=== PATIENT | male | born 1950 | race Caucasian/White ===

== ENCOUNTER → 2019-10-30 09:35 | Outpatient (CLI) | payer MEDICARE, OTHER, SELFPAY ==
[2019-10-30 10:43] LABS: Cholesterol 235 mg/dL (200); High Density Lipoprotein 34 mg/dL; Triglycerides 374 mg/dL; Very Low Density Lipoprotein 75 mg/dL (5-40)
[2019-10-30 11:01] LABS: Homocysteine 8.2 umol/L (3.2-10.7)
== END ==
PROVIDERS: Family Provider Preventive Medicine Occupational Medicine; PCP Preventive Medicine Occupational Medicine; Referring Provider Psychiatry & Neurology Neurology; Visit Provider Psychiatry & Neurology Neurology
DX: I69.352 Hemiplegia and hemiparesis following cerebral infarction affecting left dominant side (principal); I10 Essential (primary) hypertension
CPT/HCPCS: 36415; 80061; 83090

== ENCOUNTER → 2019-11-11 12:33 | Outpatient (CLI) | payer MEDICARE, OTHER, SELFPAY ==
[2015-10-14 16:18] VITALS: BMI 31.3
--- NOTE | 2019-11-11 12:38 | CDU_ITS ---
Reason For Study: Hemiparesis Rt. Velocities/BP Lt. Velocities/BP Prox CCA 88.2/15.2 cm/sec. Prox CCA 73.9/14.4 cm/sec. Mid CCA 76.5/17.6 cm/sec. Mid CCA 75.8/16.3 cm/sec. Dist CCA 80.2/22.5 cm/sec. Dist CCA 65.4/15.4 cm/sec. Prox ICA 75.3/26.2 cm/sec. Prox ICA 67.3/21.1 cm/sec. Mid ICA 76.5/21.2 cm/sec. Mid ICA 76.1/20.1 cm/sec. Dist ICA 81.4/28.6 cm/sec. Dist ICA 76.2/23.4 cm/sec. Rt. ICA/CCA = 1.0. Lt. ICA/CCA = 1.0. Prox ECA 102.3/10.2 cm/sec. Prox ECA 66.4/7.8 cm/sec. Rt. Vert. 45.6/14.5 cm/sec. Lt. Vert. 45.6/9.9 cm/sec. Right Extracranial There is homogeneous, smooth atherosclerotic plaque noted in the right common carotid artery. There is heterogeneous, irregular atherosclerotic plaque noted in the right internal carotid artery. There is intimal thickening but no significant atherosclerotic plaque noted in the right external carotid artery. Antegrade flow is noted in the right vertebral artery. Left Extracranial There is homogeneous, smooth atherosclerotic plaque noted in the left common carotid artery. There is heterogeneous, irregular atherosclerotic plaque noted in the left internal carotid artery. There is intimal thickening but no significant atherosclerotic plaque noted in the left external carotid artery. Antegrade flow is noted in the left vertebral artery. Procedure Carotid Duplex [id number]. Exam performed in department. Interpretation Summary Mild (<50%) stenosis right extracranial internal carotid. Mild (<50%) stenosis left extracranial internal carotid. Flow within the vertebral arteries is antegrade bilaterally. Ordering Physician: Jonathan Neff Referring Physician: Keshav Cerrato Performed By: Sandy Ellis RVT
--- NOTE | 2019-11-11 12:39 | ECHOD_ITS ---
Reason For Study: Hemiparesis Procedure This was a 2D Doppler, Color Flow transthoracic echocardiogram. Exam performed in department. Left Ventricle Mild concentric left ventricular hypertrophy. Normal LV size. The estimated ejection fraction is 65 %. Stage 1 diastolic dysfunction. No regional wall motion abnormalities noted. Right Ventricle Normal size and thickness. Normal systolic function. Atria Normal left atrium. Normal right atrium. Normal atrial septum. Bubble contrast study negative for right to left interatrial shunt. Mitral Valve Mild diffuse mitral valve thickening. Mild mitral annular calcification extending into the posterior leaflet. Trivial mitral valve insufficiency. Tricuspid Valve Normal tricuspid valve. Trivial tricuspid valve insufficiency. Right ventricular systolic pressure estimated to be 31 mmHg. Aortic Valve Moderate focal aortic valve thickening. Mild aortic stenosis. Peak aortic valve gradient 19 mmHg. Mean aortic valve gradient 10 mmHg. Calculated aortic valve area (continuity equation) is 1.8 cm2. Pulmonic Valve Normal pulmonic valve. Great Vessels Normal aortic root. Normal arch. Normal inferior vena cava. Inferior vena cava collapse with sniff. Pericardium/Pleural No pericardial effusion. Medication Performed a rapid injection of agitated mix of 9 cc saline and 1cc air to assess for atrial septal defect. MMode/2D Measurements & Calculations LVIDd: 4.1 cm IVSd: 1.2 cm LVOT diam: 2.3 cm LVIDs: 2.6 cm LVPWd: 1.3 cm RVDd: 2.6 cm FS: 36.3 % LVOT area: 4.2 cm2 Ao root diam: 3.3 cm LAV(MOD-bp): 48.8 ml LVAd ap4: 30.0 cm2 LAV(MOD-bp) Indexed: 23.5 ml/m2 EDV(MOD-sp4): 91.4 ml LAV(MOD-sp2): 49.2 ml EDV(sp4-el): 91.4 ml LAV(MOD-sp4): 46.9 ml LVAs ap4: 15.0 cm2 ESV(MOD-sp4): 30.3 ml ESV(sp4-el): 28.9 ml EF(MOD-sp4): 66.9 % EF(sp4-el): 68.3 % SV(MOD-sp4): 61.1 ml SV(sp4-el): 62.5 ml LA A4 area: 19.6 cm2 LA dimension(2D): 3.4 cm RA A4 area: 12.7 cm2 Doppler Measurements & Calculations MV E max zeke: 67.2 cm/sec Lat Peak E' Zeke: 7.7 cm/sec Med Peak E' Zeke: 6.4 cm/sec MV A max zeke: 130.7 cm/sec E/E' lat: 8.7 E/E' med: 10.5 MV E/A: 0.51 Ao V2 max: 220.2 cm/sec LV V1 max: 95.1 cm/sec SV(LVOT): 89.8 ml Ao max P.4 mmHg LV V1 max P.6 mmHg Ao V2 mean: 151.4 cm/sec LV V1 mean P.1 mmHg Ao mean P.2 mmHg LV V1 mean: 69.3 cm/sec Ao V2 VTI: 45.7 cm LV V1 VTI: 21.2 cm NADINE(I,D): 2.0 cm2 NADINE(V,D): 1.8 cm2 PA V2 max: 93.4 cm/sec PI end-d zeke: 59.7 cm/sec TR max zeke: 255.7 cm/sec TR max P.1 mmHg Interpretation Summary Mild concentric left ventricular hypertrophy. The estimated ejection fraction is 65 %. Stage 1 diastolic dysfunction. Bubble contrast study negative for right to left interatrial shunt. Trivial mitral valve insufficiency. Trivial tricuspid valve insufficiency. Right ventricular systolic pressure estimated to be 31 mmHg. Moderate focal aortic valve thickening of right coronary cusp. Mild aortic stenosis. There is no comparison study available. Ordering Physician: Jonathan Neff Referring Physician: Kehsav Cerrato Performed By: Berna Flynn RDCS, RVT
== END ==
PROVIDERS: Family Provider Preventive Medicine Occupational Medicine; PCP Preventive Medicine Occupational Medicine; Referring Provider Psychiatry & Neurology Neurology; Visit Provider Psychiatry & Neurology Neurology
DX: Z86.73 Personal history of transient ischemic attack (TIA), and cerebral infarction without residual deficits (principal); I69.352 Hemiplegia and hemiparesis following cerebral infarction affecting left dominant side
CPT/HCPCS: 93306; 93880; A4216

== ENCOUNTER → 2020-01-27 09:34 | Outpatient (CLI) | payer MEDICARE, OTHER, SELFPAY ==
[2020-01-27 10:38] LABS: Cholesterol 192 mg/dL (200); High Density Lipoprotein 35 mg/dL; PSA,Total - Annual Screen 0.24 ng/mL (0.00-4.00); Triglycerides 233 mg/dL; Very Low Density Lipoprotein 47 mg/dL (5-40)
== END ==
PROVIDERS: PCP Preventive Medicine Occupational Medicine; Referring Provider Preventive Medicine Occupational Medicine; Visit Provider Preventive Medicine Occupational Medicine
DX: E78.2 Mixed hyperlipidemia (principal); Z12.5 Encounter for screening for malignant neoplasm of prostate
CPT/HCPCS: 36415; 80061; 84153; G0103

== ENCOUNTER → 2020-02-23 06:54 | Outpatient (CLI) | payer MEDICARE, OTHER, SELFPAY ==
--- NOTE | 2020-02-24 17:26 | PFTCOMP_ITS ---
COMPLETE PULMONARY FUNCTION TEST INTERPRETATION Brief HPI: Patient is a 69 year old male, currently under the care of Dr. Drew, who presents to [facility] for complete pulmonary function tests secondary to diagnosis of dyspnea. Respiratory therapist reports good effort and reproducible results. Interpretation: Forced expiration spirometry shows a mild large airways obstructive ventilatory defect with an FEV1 of 101% predicted. There is no significant bronchodilator response by strict ATS criteria. Spirograms are of good quality and plateau slowly, indicating slowly emptying areas of the lungs. The respiratory flow volume loop shows decreased expiratory flow rates at high lung volumes consistent with small airways obstruction. Lung volumes by body plethysmography show an elevated total lung capacity at 8.35 L, 135% predicted. All other lung volumes are increased symmetrically. Diffusion capacity by carbon monoxide is normal at 117% predicted. The airway resistance is elevated. No previous pulmonary function tests were available for review. Impression: Fully reversible mild large airways obstructive ventilatory defect resulting in air trapping with hyperinflation, and a pattern consistent with asthma.
== END ==
PROVIDERS: PCP Preventive Medicine Occupational Medicine; Referring Provider Preventive Medicine Occupational Medicine; Visit Provider Preventive Medicine Occupational Medicine
DX: R06.09 Other forms of dyspnea (principal); E78.2 Mixed hyperlipidemia; I10 Essential (primary) hypertension
CPT/HCPCS: 94060; 94726; 94729

== ENCOUNTER → 2020-03-03 11:27 | Outpatient (CLI) | payer MEDICARE, OTHER, SELFPAY ==
[2015-10-14 16:18] VITALS: BMI 31.3
[2020-03-03 12:15] LABS: Alanine Aminotransfer ALT/SGPT 54 U/L (16-61)
[2020-03-07 09:07] LABS: AST(SGOT) 31 U/L (15-37); Cholesterol 154 mg/dL (200); High Density Lipoprotein 32 mg/dL; Triglycerides 214 mg/dL; Very Low Density Lipoprotein 43 mg/dL (5-40)
== END ==
LOC: LAB.FUTURE 11:32 → LAB 03-08 06:48
PROVIDERS: PCP Preventive Medicine Occupational Medicine; Referring Provider Preventive Medicine Occupational Medicine; Visit Provider Preventive Medicine Occupational Medicine
DX: E78.2 Mixed hyperlipidemia (principal)
CPT/HCPCS: 36415; 80061; 84450; 84460

== ENCOUNTER 2020-03-11 08:00 | Outpatient (RCR) | payer MEDICARE, OTHER, SELFPAY ==
--- NOTE | 2019-11-20 09:55 | HP.PTEVAL ---
Patient's Visit Information DWAINE RUBIO is a 69 year old M referred to Physical Therapy by Jonathan Neff MD with a diagnosis of CVA with L sided weakness. Date of Evaluation: 11/13/19 Physical Therapist: Juan Francisco Valdes DPT - Visit Plan Frequency: 1-2x /Week Duration: 4-6 Weeks Plan: Start with LLE strengthening, especially quad, hip and ankle DF. WOrk on controlled gait pattern, increasing controlled foot placemen, progress HEP. Add in dynamic balance activtiies as well. - Subjective Findings: Pt. is here today for his initial evaluation with diagnosis of CVA. Pt. has L sided weaknes. Pt. reports thsi started ~2 years ago when he fell twice at work. Pt. was seen an orthodoctor, but then was referred to neuro who found he had experienced a CVA. Pt. still works, driving and completes all daily activities without limitations. Pt. does report having weakness in his left leg resulting in difficulty walking, especially over longer distances. Pt. is hopeful to increase his strength in order to get back to all work and recreational activities without limitations. - Objective POSTURE: Pt. has decent posture in stance. P.t has normal sholder and iliac crest positioniong. No lateral lean. PALPATION: Pt. has no pain with palpation of either LE. Pt. has no marked edema throughout either LE. NEURO: Pt. has hyper reflexia on his L side. Pt. has normal reflexed on RLE. Normal otherwise. ROM: Pt. has normal ROM of bilatral LEs, expect DF on L side 10deg. Tight HS bilaterally. MMT: PT. has 5/5 strength thruohgout RLE, LLE- ankle 5/5 expect DF 4/5; knee- ext 5-/5, flexion 5-/5; hip- flexion 5-/5, abd 4/5, ext 4+/5. Core strength- fair-. GAIT: Pt. ambulates without AD. Pt. does have marked LLE ankle weakness with increasewalking. Pt. has increased lateral sway and has marked audible, foot slap, with lack of controlled eccentric lowering on L side - Balance Scores Functional Gait Assessment Score: 20 % Disability: 33.3400 - Goals Goal 1:: Pt. to be I with HEP. Goal Time Frame: 4-6 Weeks Goal 2:: Pt. to have increased LLE strength by 1/2 grade of all effected musculature. Goal Time Frame: 4-6 Weeks Goal 3:: Pt. to ambulate unlimited distances without noticable LLE weakness. Goal Time Frame: 4-6 Weeks Goal 4:: Pt. to negotiate steps with reciprocal pattern with 1 HR. Goal Time Frame: 4-6 Weeks Goal 5:: Pt. to resume all work activities without limitations. Goal Time Frame: 4-6 Weeks Goal 6:: Pt. to have improved FGA to 30. Goal Time Frame: 4-6 Weeks - Rehabilitation Potential Physical Therapy Diagnosis: pt. has signs of CVA with L sided weakness, LE more effected than UEs. Pt. reprots no pain, but is noticing increased difficulty with walking, standing and work activities. He would benefit from PT to work on LLE strength, gait progression and balance/stability exercises. Rehabilitation Potential: Good - Anticipated Interventions Patient/Client Instruction: Educate patient on: Condition, Plan of Care, Risk Factors, Benefits of Fitness Program For the Purpose of:: To improve health and function, To foster healthy habits, To improve decision making, To facilitate caregiver knowledge, To improve self management, To prevent re-injury, To improve ability to perform tasks related to life management, To improve tolerance to ADL's Therapeutic Exercise to Include: Strength training, Power training, Postural training, Flexibilty training, Gait and locomotor training, Passive ROM, Active ROM For the Purpose of:: To increase ROM, To improve nutrient delivery to tissue, To increase oxygenation perfusion, To improve muscle performance and motor function, To improve ability of physical actions for home/community/work/leisure, To improve gait and locomotor functions, To improve health of tissue, To decrease soft tissue restriction, To increase flexibility/ROM, To improve endurance, To improve safety with gait Thank you for the opportunity to evaluate your patient. For Medicare and Medicare HMO plans, please review the plan of care and approve it. It will need to be FAXED BACK to us at [phone] for Medicare purposes. For Medicare only, by signing this I certify the plan of care. Please let me know if there are questions or concerns regarding this plan of care. Physician Signature: Date:
--- NOTE | 2019-12-25 14:11 | HP.PTREVAL ---
Jonathan Neff MD, It has been my pleasure to treat DWAINE RUBIO over the last 9 visits for CVA with L sided weakness. Please see the progress note below for an update on the physical therapy plan of care! Subjective: Pt reports no new issues. PT. reports I feel lilke I am getting better, but I am still weak. I saw my doctor and he wrote a new note from 8 more weeks. Pt. reports being HEP compliant without issues. Objective/Function: LLE- ankle-DF 54# ,quad 73.7#, HS- 48#. hip- abd 24#, flexion 28#, ext 32#. RLE- ankle DF- 78# , knee- quad 58#, HS 64#, hip- abd 38#, flexion 34deg, ext 39#. gait: Pt. completed 1550ft. with MWT. Pt. initially started with good eccentric controll of L DF, more pronouncedw ith increased walking. STAIRS: good pattern, noticable L hip weakness during controlled eccntic lowering. FGA: , difficulty with eyes closed. Pt. is progressing with LLE strengthening. Pt. still has marked weakness in in LLE, most notably with HS, DF, PF, and hip abductors. Pt. would benefit from continued PT with focus on this LLE strengthening and progression of gait and functional stability. Plan Plan: Cont. with POC, patient saw physician and would like him to contiune with PT for another x2 per week for 8 weeks. I will see him with this intent, progressing away from PT when able. Goals Goal 1:: Pt. to be I with HEP. Goal Time Frame: 4-6 Weeks Goal Progress: Progressing Goal 2:: Pt. to have increased LLE strength by 1/2 grade of all effected musculature. Goal Time Frame: 4-6 Weeks Goal Progress: Progressing Goal 3:: Pt. to ambulate unlimited distances without noticable LLE weakness. Goal Time Frame: 4-6 Weeks Goal Progress: Progressing Goal 4:: Pt. to negotiate steps with reciprocal pattern with 1 HR. Goal Time Frame: 4-6 Weeks Goal Progress: Goal Met Goal 5:: Pt. to resume all work activities without limitations. Goal Time Frame: 4-6 Weeks Goal Progress: Progressing Goal 6:: Pt. to have improved FGA to 26/30. Goal Time Frame: 4-6 Weeks Goal Progress: Goal Met Anticipated Interventions Patient/Client Instruction: Educate patient on: Condition, Plan of Care, Risk Factors, Benefits of Fitness Program For the Purpose of:: To improve health and function, To foster healthy habits, To improve decision making, To facilitate caregiver knowledge, To improve self management, To prevent re-injury, To improve ability to perform tasks related to life management, To improve tolerance to ADL's Therapeutic Exercise to Include: Strength training, Power training, Postural training, Flexibilty training, Gait and locomotor training, Passive ROM, Active ROM For the Purpose of:: To increase ROM, To improve nutrient delivery to tissue, To increase oxygenation perfusion, To improve muscle performance and motor function, To improve ability of physical actions for home/community/work/leisure, To improve gait and locomotor functions, To improve health of tissue, To decrease soft tissue restriction, To increase flexibility/ROM, To improve endurance, To improve safety with gait Please do not hesitate to contact me at [phone] by phone or if you have questions or concerns regarding this new plan of care! Sincerely, ALEXANDRIA MckeonT
--- NOTE | 2020-02-19 11:52 | HP.PTREVAL_ITS ---
Jonathan Neff MD, It has been my pleasure to treat DWAINE RUBIO over the last 23 visits for CVA with L sided weakness. Please see the progress note below for an update on the physical therapy plan of care! Subjective: pt. reports overall he is doing much better. Pt. has no pain and believes that his strength has improved. Pt. is still concerned with his b alance. Mostly with high levels of balance especially with single leg stance. pt. reports no falls since starting PT. HEP compliant. Objective/Function: Pt. did well with MMT: 5/5 throughout, but did have some functional weakness with lunging motions. Pt. had her greatest issue with SLS, and even more trouble with SLS picking objects (ie golfers roll picker). Pt. did well with his FGA . Pt. had grestest difficulty with narrow ASHLEY. Pt. has grest difficulty with dynamic SLS activies on LLE. SLS on R LE 26sec, SLS on LLE 4sec. Pt. needs to work on motor control of LLE in dynamic movements. Plan Plan: POC extendend POC x2 per week for 3 weeks with focus on high level balance and emphasis on SLS on multiple surfaces, while doing activities to challenge high levels of stability. Goals Goal 1:: Pt. to be I with HEP. Goal Time Frame: 4-6 Weeks Goal Progress: Goal Met Goal 2:: Pt. to have increased LLE strength by 1/2 grade of all effected musculature. Goal Time Frame: 4-6 Weeks Goal Progress: Goal Met Goal 3:: Pt. to ambulate unlimited distances without noticable LLE weakness. Goal Time Frame: 4-6 Weeks Goal Progress: Progressing Goal 4:: Pt. to negotiate steps with reciprocal pattern with 1 HR. Goal Time Frame: 4-6 Weeks Goal Progress: Goal Met Goal 5:: Pt. to resume all work activities without limitations. Goal Time Frame: 4-6 Weeks Goal Progress: Progressing Goal 6:: Pt. to have improved FGA to . (NEW GOAL: 02/19/20: PT. to have equal SLS time) Goal Time Frame: 4-6 Weeks Goal Progress: Progressing Anticipated Interventions Patient/Client Instruction: Educate patient on: Condition, Plan of Care, Risk Factors, Benefits of Fitness Program For the Purpose of:: To improve health and function, To foster healthy habits, To improve decision making, To facilitate caregiver knowledge, To improve self management, To prevent re-injury, To improve ability to perform tasks related to life management, To improve tolerance to ADL's Therapeutic Exercise to Include: Strength training, Power training, Postural training, Flexibilty training, Gait and locomotor training, Passive ROM, Active ROM For the Purpose of:: To increase ROM, To improve nutrient delivery to tissue, To increase oxygenation perfusion, To improve muscle performance and motor function, To improve ability of physical actions for home/community/work/leisure, To improve gait and locomotor functions, To improve health of tissue, To decrease soft tissue restriction, To increase flexibility/ROM, To improve endurance, To improve safety with gait Please do not hesitate to contact me at [phone] by phone or if you have questions or concerns regarding this new plan of care! Sincerely, Juan Francisco Valdes DPT
--- NOTE | 2020-03-11 09:21 | HP.PTREVAL_ITS ---
Jonathan Neff MD, It has been my pleasure to treat DWAINE RUBIO over the last 29 visits for CVA with L sided weakness. Please see the progress note below for an update on the physical therapy plan of care! Subjective: Pt. reports 'I am doing well. I still having some trouble with my balance on one leg.' Pt. reports no falls and is working at home and oustide without issues. pt. reports being HEP compliant. He reports stil having difficulties with SLS and bending over to pick things up. Objective/Function: Pt. has great ankle mobility and hip mobility. Lumbar spine has good mobility. Pt. has improved HS length to normal without issues. MMT: 5/5 strength throughout, except with hip abd 4+/5 bilat. Full ankle strength, except with functional heel raises in single leg (normal on R, decreased stength on L). SLS on RLE 22sec, LLE 8sec (imprived with repetition). Pt. has normal gait pattern and negotiates steps without issues. Plan Plan: Pt. to trial exercises on own at home for 3-4 weeks then follow up with PT if needed to brush up HEP and progress to gym exercises, once gyms open back up after pandemic. He is doing well with strength (except for the few deficits) and balance has improved with SLS and stability exercises. He still has some deficits with lunging and dyanmic balance but has improved. He is to try exercises on his own adn follow up with PT for possible progression in 3-4 weeks. Goals Goal 1:: Pt. to be I with HEP. Goal Time Frame: 4-6 Weeks Goal Progress: Goal Met Goal 2:: Pt. to have increased LLE strength by 1/2 grade of all effected musc ulature. Goal Time Frame: 4-6 Weeks Goal Progress: Goal Met Goal 3:: Pt. to ambulate unlimited distances without noticable LLE weakness. Goal Time Frame: 4-6 Weeks Goal Progress: Goal Met Goal 4:: Pt. to negotiate steps with reciprocal pattern with 1 HR. Goal Time Frame: 4-6 Weeks Goal Progress: Goal Met Goal 5:: Pt. to resume all work activities without limitations. Goal Time Frame: 4-6 Weeks Goal Progress: Goal Met Goal 6:: Pt. to have improved FGA to . (NEW GOAL: 02/19/20: PT. to have equ al SLS time) Goal Time Frame: 4-6 Weeks Goal Progress: Progressing Anticipated Interventions Patient/Client Instruction: Educate patient on: Condition, Plan of Care, Risk Factors, Benefits of Fitness Program For the Purpose of:: To improve health and function, To foster healthy habits, To improve decision making, To facilitate caregiver knowledge, To improve self management, To prevent re-injury, To improve ability to perform tasks related to life management, To improve tolerance to ADL's Therapeutic Exercise to Include: Strength training, Power training, Postural training, Flexibilty training, Gait and locomotor training, Passive ROM, Active ROM For the Purpose of:: To increase ROM, To improve nutrient delivery to tissue, To increase oxygenation perfusion, To improve muscle performance and motor function, To improve ability of physical actions for home/community/work/leisure, To improve gait and locomotor functions, To improve health of tissue, To decrease soft tissue restriction, To increase flexibility/ROM, To improve endurance, To improve safety with gait Please do not hesitate to contact me at [phone] by phone or if you have questions or concerns regarding this new plan of care! Sincerely, Juan Francisco Valdes DPT
--- NOTE | 2020-05-11 10:21 | HP.PT.NRP ---
DWAINE RUBIO was seen in my office for initial evaluation on 11/13/19. The following Plan of Care was established for this patient: Initial Frequency: 1-2x /Week Initial Duration: 4-6 Weeks Patient/Client Instruction: Educate patient on: Condition, Plan of Care, Risk Factors, Benefits of Fitness Program For the Purpose of:: To improve health and function, To foster healthy habits, To improve decision making, To facilitate caregiver knowledge, To improve self management, To prevent re-injury, To improve ability to perform tasks related to life management, To improve tolerance to ADL's Therapeutic Exercise to Include: Strength training, Power training, Postural training, Flexibilty training, Gait and locomotor training, Passive ROM, Active ROM For the Purpose of:: To increase ROM, To improve nutrient delivery to tissue, To increase oxygenation perfusion, To improve muscle performance and motor function, To improve ability of physical actions for home/community/work/leisure, To improve gait and locomotor functions, To improve health of tissue, To decrease soft tissue restriction, To increase flexibility/ROM, To improve endurance, To improve safety with gait This patient was last seen in our office 03/11/20. Pertinent comments regarding their Physical therapy will appear below: Pt. was seen for her LE weakness and imbalance. He was treated with strengthening and coordination exercises. Pt. had progress, but was still working on SLS balance. He was to trial HEP on his own at his last visit and follow up with PT if needed. Pt. has not been seen in several months and will be DC from PT at this point in time. At this point I will be discontinuing this patient from physical therapy. I would be happy to see this patient again in the future if found appropriate by the physician. Thank you! Juan Francisco Valdes, ALEXANDRIAT
== END 2020-03-11 19:00 | disposition home or self-care (01) ==
LOC: PT 08:00
PROVIDERS: Family Provider Preventive Medicine Occupational Medicine; PCP Preventive Medicine Occupational Medicine; Referring Provider Psychiatry & Neurology Neurology; Visit Provider Psychiatry & Neurology Neurology
DX: I69.351 Hemiplegia and hemiparesis following cerebral infarction affecting right dominant side (principal)
CPT/HCPCS: 97110; 97161; 97164; 97530

== ENCOUNTER → 2020-03-25 20:00 | Outpatient (CLI) | payer MEDICARE, OTHER, SELFPAY | PROVIDERS: PCP Preventive Medicine Occupational Medicine; Referring Provider Preventive Medicine Occupational Medicine; Visit Provider Preventive Medicine Occupational Medicine | DX: G47.33 Obstructive sleep apnea (adult) (pediatric) (principal) | CPT/HCPCS: 95810 ==

== ENCOUNTER → 2021-04-10 09:14 | Outpatient (CLI) | payer MEDICARE, OTHER, SELFPAY ==
[2021-04-10 11:11] LABS: ALB/GLOB Ratio 1.1 RATIO (0.9-2.4); AST(SGOT) 26 U/L (15-37); Alanine Aminotransfer ALT/SGPT 58 U/L (16-61); Alkaline Phosphatase 82 U/L (45-117); Anion Gap 5 (5-15); BUN 11 mg/dL (7-18); Calcium,Total 9.1 mg/dL (8.5-10.1); Chloride 107 mmol/L (98-107); Cholesterol 160 mg/dL (200); Creatinine, Serum 0.85 mg/dL (0.70-1.30); EST Glomerular Filtration Rate 95 mL/min (>60); Est Glom Filt Rate - Afr Amer 115 mL/min (>60); Globulin 3.8 g/dL (2.2-4.2); Glucose 106 mg/dL (74-106); High Density Lipoprotein 40 mg/dL; PSA,Total - Annual Screen 0.22 ng/mL (0.00-4.00); Protein, Total 7.8 g/dL (6.4-8.2); Sodium Level 137 mmol/L (136-145); Triglycerides 179 mg/dL; Very Low Density Lipoprotein 36 mg/dL (5-40)
[2021-04-10 13:30] LABS: Microalbumin,Random Urine 7.1 mg/L (NO RANGE EST.)
== END ==
PROVIDERS: PCP Preventive Medicine Occupational Medicine; Visit Provider Preventive Medicine Occupational Medicine
DX: Z12.5 Encounter for screening for malignant neoplasm of prostate (principal); I10 Essential (primary) hypertension; E78.2 Mixed hyperlipidemia
CPT/HCPCS: 36415; 80053; 80061; 82043; 84153; G0103

== ENCOUNTER 2023-05-27 09:00 | Outpatient (RCR) | payer MEDICARE, OTHER, SELFPAY ==
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
--- NOTE | 2023-05-27 09:58 | HP.PTDCSUM ---
Discharge Summary D/C summary: It has been my pleasure to treat DWAINE RUBIO referred by Dr. Jonathan Neff MD, with the diagnosis of ataxia for a total of 9 visit(s). Discharge Date: 05/27/23 Please see the following information for a summary of their discharge status. Subjective Subjective: I am limping less than I used to. After a couple visits he knew it would be helpful and getting stronger. Signed up again for [employer] and will work on this on his own now. Feels better at home with gait and walking, safer. Still happens if fatigued. To [place] June 18. Overall Improvement % Improvement: 50 Objective Objective/Function: Much better gait without antalgia and decent pushoff. 58# Df strength R is +8 and near symmetrical with L side. Goals Goal 1:: Walk dog confidently and comforably Goal Progress: Goal Met Goal 2:: I appropriate HEp and gym ex for ankle flex/strength, HS strength and general gym program. Goal Progress: Goal Met Goal 3:: Patient ambulate with push off on L LE Goal Progress: Goal Met Goal 4:: 58# strength L DF to minimize fallr isk Goal Progress: Goal Met Goal 5:: Pt feel 75% better in overall gait and balance. Goal Progress: 50% Plan Plan: d/c D/C Information d/c sentence: If there are questions or concerns regarding this patient's physical therapy, please feel free to call me at [phone]. Thank you for the referral of this patient. Sincerely, Ion Harrison, DPT, OCS, CSCS Balance/Gait/Functional tests Balance/Special Test Scores Functional Gait Assessment Score: 29 % Disability: 3.3400 CATSIB Score (Max score 120 seconds): 120 Lower Extremity Functional Score: 72
== END 2023-05-27 14:02 | disposition home or self-care (01) ==
LOC: PT 09:00
PROVIDERS: PCP Preventive Medicine Occupational Medicine; Referring Provider Psychiatry & Neurology Neurology; Visit Provider Psychiatry & Neurology Neurology
DX: R27.0 Ataxia, unspecified (principal)
CPT/HCPCS: 97110; 97162; 97164